=== PATIENT | male | born 1950 | race Caucasian/White ===

== ENCOUNTER 2018-02-20 09:40 | Day surgery (SDC) | payer MEDICARE, BC ==
--- NOTE | 2018-02-13 22:39 | HP ---
PREOPERATIVE HISTORY AND PHYSICAL: DATE OF ADMISSION/SURGERY: 02/20/18 - [facility] DATE OF OFFICE VISIT/ENCOUNTER: 02/07/18 ATTENDING SURGEON: Jesusita Britt MD * (DICTATED BY AMY COURTNEY) PROCEDURE: Left shoulder arthroscopic decompression, debridement, subpectoral biceps tenodesis, and possible rotator cuff repair. CHIEF COMPLAINT: Left shoulder pain. HISTORY OF PRESENT ILLNESS: This is a 57-year-old male, who is an avid triathlete. He has been having pain in his left shoulder since the beginning of 2018. He had an incident where he fell off his truck and injured his shoulder and he has continued to have pain despite conservative treatment including cortisone injections and physical therapy for several months. He has also been using nonsteroidal anti-inflammatory drugs, which are not helpful. He continues to have lateral aching pain in the shoulder and anterior catching pain. An MRI revealed partial-thickness tearing. Conservative treatment has not been helpful in alleviating his discomfort and he has consented to proceed with surgical intervention at this time. PAST MEDICAL HISTORY: 1. Hypothyroidism. 2. History of prostate cancer. PAST SURGICAL HISTORY: 1. Cancerous tumor removed from face. 2. Radical prostatectomy. CURRENT MEDICATIONS: 1. Diclofenac sodium 75 mg 1 tab twice a day. 2. Levothyroxine sodium 50 mcg daily. 3. Powell-3 1000 mg daily. 4. Pantoprazole sodium daily. 5. Rosuvastatin calcium 5 mg. ALLERGIES: MORPHINE causes nausea. FAMILY MEDICAL HISTORY: Cancer. 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 He denies tobacco use and recreational drug use. He does drink alcohol on occasion. REVIEW OF SYSTEMS: Negative for general, cardiovascular, respiratory, GI, , other musculoskeletal, integumentary, endocrine, neurologic, and hematologic symptoms. Infectious Disease: Negative for MRSA, hepatitis C, HIV. PHYSICAL EXAMINATION GENERAL: Well-developed, well-nourished 67-year-old male, in no acute distress. VITAL SIGNS: Height 5 feet 7 inches, weight 166 pounds. Blood pressure 130/78 , pulse rate 64. HEENT: Normocephalic, atraumatic. Pupils are equal, round, and reactive to light and accommodation. Extraocular movements are intact. Throat is clear. NECK: Supple. No palpable lymph nodes. PULMONARY: Lungs are clear to auscultation bilaterally. No wheezes, rales, or rhonchi. CARDIOVASCULAR: Regular rate and rhythm. S1, S2. No murmurs, rubs, or gallops. No edema. ABDOMEN: Positive bowel sounds. Soft, nontender. NEUROLOGICAL: Alert and oriented x3. Cranial nerves II through XII are intact. Sensation is intact to light touch. MUSCULOSKELETAL: On exam of left shoulder, skin is intact. There is no warmth or erythema. Tenderness to palpation over the proximal biceps. Forward flexion to 120 degrees, abduction to 90 degrees, external rotation to 50 degrees , internal rotation to lumbar spine. +4/5 strength to rotator cuff testing with pain. Positive impingement, Speeds, Odell-Néstor, and Schroeder's test. + 2 radial pulse. Sensation is intact to light touch distally. IMAGING STUDIES: MRI of the left shoulder shows partial-thickness tearing and tendinosis of the supraspinatus muscle and tendon. There is a moderate degree of AC joint arthritis. IMPRESSION: Left shoulder impingement, partial-thickness rotator cuff tear, biceps tendinitis, and AC joint arthritis. PLAN: The patient is scheduled to undergo a left shoulder arthroscopic decompression, debridement, subpectoral biceps tenodesis, possible rotator cuff repair with Dr. Britt on 02/20/18. He will return to the office 10 days postop for followup and suture removal. He will be prescribed Percocet for postoperative pain management. AMY COURTNEY [id number]/[facility] #: [id number] KATLIN
[~2018-02-20 09:40] MED LIST: Buffered Lidocaine 0.9% SYRIN* 5 ML/SYR SYRINGE INTRADERM ONE
[2018-02-20] MEDS ORDERED: ceFAZolin 2 GM PREMIX in ORs 2 GM/50 ML BAG IVPB ONE (09:48)
[2018-02-20] MEDS ORDERED: fentaNYL* 50 MCG/ML 2 ML VIAL (100 MCG VIAL) ONE (10:49)
[2018-02-20] MEDS ORDERED: Midazolam* 1 MG/ML 2 ML VIAL (2 MG) ONE (10:49)
[2018-02-20] MEDS ORDERED: Sodium Chloride 0.9%* 10 ML ONE (10:50)
[2018-02-20] MEDS ORDERED: ROPIVACAINE 5 MG/ML 30 ML BTL (0.5%) ONE ×2 (11:09→11:14)
[2018-02-20] MEDS ORDERED: Ketorolac INJ* 30 MG/ML 1 ML VIAL IV PRN (12:20)
[2018-02-20] MEDS ORDERED: Naloxone* 0.4 MG/ML 1 ML VIAL IV PRN (12:20)
[2018-02-20] MEDS ORDERED: fentaNYL* 50 MCG/ML 2 ML VIAL (100 MCG VIAL) IV PRN (12:20)
[2018-02-20] MEDS ORDERED: Ondansetron INJ* 2 MG/ML VIAL IV PRN (12:20)
[2018-02-20 13:51] VITALS: BP 110/62
--- NOTE | 2018-02-21 11:22 | OP ---
DATE OF OPERATION: 02/20/18 - [facility] DATE OF : 46 SURGEON: Jesusita Britt MD NEWS DIRECTOR: AMY Dhaliwal. An personnel assistant was needed for the entirety of the case to help with positioning, retraction, and utilized throughout all portions of the case. ANESTHESIOLOGIST: Dr. Smith. ANESTHESIA: General with interscalene block. PRE-OP DIAGNOSIS: Left shoulder high-grade partial thickness tear of the rotator cuff with biceps tendinosis, flap tear and impingement. POST-OP DIAGNOSIS: Left shoulder high-grade partial thickness tear of the rotator cuff with biceps tendinosis, flap tear and impingement. OPERATIVE PROCEDURES: 1. Left shoulder arthroscopy with extensive glenohumeral debridement including debridement of the anterior, posterior, and superior labrum as well as small chondroplasty. 2. Subacromial decompression with acromioplasty. 3. Rotator cuff repair using REGENETEN patch. 4. Subpectoral biceps tenodesis. IMPLANTS USED: One size large REGENETEN patch, one 2.8 mm Q-Fix. COMPLICATIONS: None. ESTIMATED BLOOD LOSS: Minimal. INDICATIONS: Dalton Aleman is a 67-year-old male with persistent shoulder pain, refractory to conservative management. He does have an MRI, which diagnosed him with a biceps tendon injury as well as partial thickness tear of the rotator cuff. Risks and benefits of surgery were discussed at length, included but not limited to bleeding; infection; damage to nerves, vessels, surrounding structures; wound nonhealing; persistent pain; need for surgery; scaring; stiffness; incomplete release of symptoms; and risks of anesthesia. He has elected to proceed with surgery. DESCRIPTION OF PROCEDURE: The patient was greeted in the preoperative area by the attending surgeon. Correct extremity was marked. Consent was confirmed. The patient underwent interscalene nerve block by the anesthesiologist, after which he was brought back to the operating suite. He was placed in the supine position on the operating room table. He then underwent general anesthesia with endotracheal intubation, after which he was placed in the right lateral decubitus position with a axillary roll. All bony prominences were padded. He was secured with a peg board. The left arm was draped unsterile with 10 pounds of traction. The left shoulder was prepped and draped in the usual sterile fashion beginning with chlorhexidine soap, scrub, and alcohol wipe and a final prep with ChloraPrep. After appropriate surgical pause indicating site, side, procedure, administration of antibiotics, the 11 blade was used to make an incision posterolaterally. The scope was introduced into the joint. The anterior portal was made in an outside-in- fashion. Shaver was used to debride back the anterior, posterior, and superior labrum. The biceps was tenotomized for later tenodesis as there was tendonitis and tendinopathy. The undersurface of the supraspinatus had high-grade partial thickness tearing. The subscap was intact. Inferior recess was intact. Glenohumeral joint had some mild chondrosis, grade 1 to 2, this was debrided back using a shaver. The cuff was then marked using an 0-PDS suture and identified proximal on the subacromial space. The scope was positioned in the subacromial space. The lateral portal was made in an outside-in fashion. Shaver was used to debride back the abundant synovitis that was present. The cuff was examined, had some partial-thickness tearing on the this side as well. After an acromioplasty was done using 4-0 oval grace, releasing the CA ligament, attention was directed to the cuff. This was probed, found to be a high-grade partial thickness tear. Decision was made to try to treat this with a REGENETEN patch as opposed to formal repair. The size large REGENETEN patch was brought to the field and placed under arthroscopic visualization. This was then secured through a separate stab incision with tendon shannan medially and then laterally with bone shannan. This was found to be well seated. The shoulder was gently taken through range of motion, final images were obtained and attention was directed to the biceps. The bed was airplaned to the left side. The anterior aspect of the shoulder was prepped again. A 15 blade was used to make incision in line with the biceps. Soft tissues were carefully dissected to expose the pec fascia. The remainder of the dissection was done bluntly. The pec was elevated, the biceps was brought to the wound, the groove was then prepared in the usual fashion using electrocautery device, the red ball rasp, and osteotome. The Q-Fix guide was drilled unicortically. The Q-Fix was deployed with excellent purchase. The sutures were passed through the tendon, approximately 1 cm proximal to the muscular tendinosis junction in a Waldo-Rafa type configuration. Excess stump was excised and the biceps was shuttled back into the wound. The biceps was then secured. The wounds were then copiously irrigated with sterile saline. Portals were closed with 3-0 nylon, anterior wound was closed with 2-0 Vicryl and 3-0 Monocryl. Sterile dressings were applied. A Cryo/Cuff and UltraSling were applied. He was awoken from anesthesia and transferred to PACU in stable condition. POSTOPERATIVE PLAN: He will be nonweightbearing. He will be in a sling for 4 weeks. He will be discharged on pain medications and antibiotics. He will start therapy in 10 days. DVT prophylaxis considered, but deferred due to no previous personal or family history. [id number]/[facility] #: [id number] KATLIN
== END 2018-02-20 13:55 | disposition home or self-care (01) ==
LOC: OREAST 09:40
PROVIDERS: ATTEND Orthopaedic Surgery
DX: S46.012A Strain of muscle(s) and tendon(s) of the rotator cuff of left shoulder, initial encounter (principal); S43.492A Other sprain of left shoulder joint, initial encounter; M75.42 Impingement syndrome of left shoulder; M75.22 Bicipital tendinitis, left shoulder; G89.18 Other acute postprocedural pain; W17.89XA Other fall from one level to another, initial encounter; Y92.89 Other specified places as the place of occurrence of the external cause; Z85.46 Personal history of malignant neoplasm of prostate; E03.9 Hypothyroidism, unspecified
CPT/HCPCS: 88304; C1713; C1776; J0690; J2250; J2795; J3010